=== PATIENT | female | born 1940 | race Caucasian/White ===

== ENCOUNTER 2021-09-25 09:03 | Inpatient (IN) | payer MEDICARE, OTHER ==
[2021-09-25] MEDS ORDERED: Enoxaparin 40 MG/0.4 ML Syringe SUBCUT SCH (15:15)
[2021-09-25] MEDS: carBAMazepine 200 MG Tab PO SCH ×2 (16:59→21:34)
[2021-09-25] MEDS: Acetaminophen 500 MG Tab PO SCH ×2 (17:00→21:34)
[2021-09-26] MEDS: Cholecalciferol (Vitamin D3) 25 MCG Tab PO SCH (08:42)
[2021-09-26] MEDS: Potassium Chloride 20 MEQ Tab.ER PO SCH (08:42)
[2021-09-26] MEDS: Metoprolol Succinate 25 MG Tab.ER PO SCH (08:43)
[2021-09-26] MEDS: Acetaminophen 500 MG Tab PO SCH ×3 (08:43→20:35)
[2021-09-26] MEDS: Flecainide 100 MG Tab PO SCH (08:43)
[2021-09-26] MEDS: carBAMazepine 200 MG Tab PO SCH ×3 (08:43→20:34)
[2021-09-26] MEDS: Enoxaparin 40 MG/0.4 ML Syringe SUBCUT SCH (08:44)
[2021-09-26] MEDS: Furosemide 20 MG Tab PO SCH (08:44)
[2021-09-26] MEDS: Multivitamin Tab PO SCH (08:44)
[2021-09-26] MEDS: Melatonin 3 MG Tab PO PRN (20:34)
[2021-09-27] MEDS: Acetaminophen 500 MG Tab PO SCH ×3 (08:35→20:19)
[2021-09-27] MEDS: Enoxaparin 40 MG/0.4 ML Syringe SUBCUT SCH (08:35)
[2021-09-27] MEDS: Flecainide 100 MG Tab PO SCH (08:36)
[2021-09-27] MEDS: carBAMazepine 200 MG Tab PO SCH ×3 (08:36→20:18)
[2021-09-27] MEDS: Cholecalciferol (Vitamin D3) 25 MCG Tab PO SCH (08:36)
[2021-09-27] MEDS: Furosemide 20 MG Tab PO SCH (08:36)
[2021-09-27] MEDS: Multivitamin Tab PO SCH (08:36)
[2021-09-27] MEDS: Potassium Chloride 20 MEQ Tab.ER PO SCH (08:37)
[2021-09-27] MEDS: Metoprolol Succinate 25 MG Tab.ER PO SCH (08:42)
[2021-09-27] MEDS: Melatonin 3 MG Tab PO PRN (20:20)
[2021-09-28] MEDS: Multivitamin Tab PO SCH (09:16)
[2021-09-28] MEDS: Acetaminophen 500 MG Tab PO SCH ×3 (09:16→20:42)
[2021-09-28] MEDS: Potassium Chloride 20 MEQ Tab.ER PO SCH (09:16)
[2021-09-28] MEDS: carBAMazepine 200 MG Tab PO SCH ×3 (09:16→20:42)
[2021-09-28] MEDS: Flecainide 100 MG Tab PO SCH (09:16)
[2021-09-28] MEDS: Enoxaparin 40 MG/0.4 ML Syringe SUBCUT SCH (09:16)
[2021-09-28] MEDS: Furosemide 20 MG Tab PO SCH (09:16)
[2021-09-28] MEDS: Metoprolol Succinate 25 MG Tab.ER PO SCH (09:17)
[2021-09-28] MEDS: Cholecalciferol (Vitamin D3) 25 MCG Tab PO SCH (09:17)
[2021-09-28] MEDS ORDERED: Warfarin Sliding Scale PO SCH (16:00)
[2021-09-28] MEDS: Warfarin 5 MG Tab PO SCH (16:58)
[2021-09-28] MEDS: Melatonin 3 MG Tab PO PRN (21:52)
[2021-09-29] MEDS: Metoprolol Succinate 25 MG Tab.ER PO SCH (08:24)
[2021-09-29] MEDS: Acetaminophen 500 MG Tab PO SCH ×3 (08:24→21:58)
[2021-09-29] MEDS: Furosemide 20 MG Tab PO SCH (08:24)
[2021-09-29] MEDS: Cholecalciferol (Vitamin D3) 25 MCG Tab PO SCH (08:24)
[2021-09-29] MEDS: carBAMazepine 200 MG Tab PO SCH ×3 (08:24→21:58)
[2021-09-29] MEDS: Multivitamin Tab PO SCH (08:24)
[2021-09-29] MEDS: Enoxaparin 40 MG/0.4 ML Syringe SUBCUT SCH (08:25)
[2021-09-29] MEDS: Potassium Chloride 20 MEQ Tab.ER PO SCH (08:25)
[2021-09-29] MEDS: Flecainide 100 MG Tab PO SCH (08:25)
[2021-09-29] MEDS ORDERED: Warfarin 5 MG Tab PO SCH (16:00)
[2021-09-29] MEDS: Warfarin 5 MG, Warfarin 2.5 MG PO SCH ×2 (16:36)
[2021-09-29] MEDS: Melatonin 3 MG Tab PO PRN (22:25)
[2021-09-30] MEDS: Potassium Chloride 20 MEQ Tab.ER PO SCH (08:35)
[2021-09-30] MEDS: Furosemide 20 MG Tab PO SCH (08:35)
[2021-09-30] MEDS: Enoxaparin 40 MG/0.4 ML Syringe SUBCUT SCH (08:36)
[2021-09-30] MEDS: Flecainide 100 MG Tab PO SCH (08:36)
[2021-09-30] MEDS: carBAMazepine 200 MG Tab PO SCH ×3 (08:36→20:41)
[2021-09-30] MEDS: Multivitamin Tab PO SCH (08:36)
[2021-09-30] MEDS: Acetaminophen 500 MG Tab PO SCH ×3 (08:37→20:41)
[2021-09-30] MEDS: Metoprolol Succinate 25 MG Tab.ER PO SCH (08:37)
[2021-09-30] MEDS: Cholecalciferol (Vitamin D3) 25 MCG Tab PO SCH (08:38)
[2021-09-30] MEDS: Warfarin 5 MG, Warfarin 2.5 MG PO SCH ×2 (15:33)
[2021-10-01] MEDS: Multivitamin Tab PO SCH (08:41)
[2021-10-01] MEDS: Potassium Chloride 20 MEQ Tab.ER PO SCH (08:41)
[2021-10-01] MEDS: Cholecalciferol (Vitamin D3) 25 MCG Tab PO SCH (08:42)
[2021-10-01] MEDS: carBAMazepine 200 MG Tab PO SCH ×3 (08:42→21:07)
[2021-10-01] MEDS: Furosemide 20 MG Tab PO SCH (08:43)
[2021-10-01] MEDS: Flecainide 100 MG Tab PO SCH (08:43)
[2021-10-01] MEDS: Metoprolol Succinate 25 MG Tab.ER PO SCH (08:44)
[2021-10-01] MEDS: Acetaminophen 500 MG Tab PO SCH ×3 (08:44→21:07)
[2021-10-01] MEDS: Warfarin 5 MG, Warfarin 2.5 MG PO SCH ×2 (16:37)
[2021-10-02] MEDS: Furosemide 20 MG Tab PO SCH (09:00)
[2021-10-02] MEDS: Flecainide 100 MG Tab PO SCH (09:00)
[2021-10-02] MEDS: Potassium Chloride 20 MEQ Tab.ER PO SCH (09:00)
[2021-10-02] MEDS: Cholecalciferol (Vitamin D3) 25 MCG Tab PO SCH (09:01)
[2021-10-02] MEDS: Acetaminophen 500 MG Tab PO SCH ×2 (09:01→14:49)
[2021-10-02] MEDS: carBAMazepine 200 MG Tab PO SCH ×2 (09:01→14:49)
[2021-10-02] MEDS: Multivitamin Tab PO SCH (09:01)
[2021-10-02] MEDS: Metoprolol Succinate 25 MG Tab.ER PO SCH (09:01)
[2021-10-02] MEDS: Warfarin 5 MG Tab PO SCH (15:53)
== END 2021-10-02 16:00 | disposition home or self-care (01) | DRG 948 ==
LOC: UNDOADMIN 14:38 → FB.MS 14:38
PROVIDERS: ADMIT Family Medicine; ATTEND Family Medicine
DX: R53.1 Weakness (principal); C18.1 Malignant neoplasm of appendix; D62 Acute posthemorrhagic anemia; I38 Endocarditis, valve unspecified; I50.32 Chronic diastolic (congestive) heart failure; L57.0 Actinic keratosis; Z66 Do not resuscitate; G40.909 Epilepsy, unspecified, not intractable, without status epilepticus; I11.0 Hypertensive heart disease with heart failure; K21.9 Gastro-esophageal reflux disease without esophagitis; M19.90 Unspecified osteoarthritis, unspecified site; I48.0 Paroxysmal atrial fibrillation; Z90.49 Acquired absence of other specified parts of digestive tract; Z79.01 Long term (current) use of anticoagulants; Z95.2 Presence of prosthetic heart valve; Z79.899 Other long term (current) drug therapy; Z95.0 Presence of cardiac pacemaker
CPT/HCPCS: 36415; 85610; 97116-GP; 97161-GP; 97166-GO; 97530-GO; 97535-GO; 99305; 99315; A9270-GY; J1650

== ENCOUNTER 2022-05-30 15:22 | Emergency (ER) | payer MEDICARE, OTHER ==
[2022-05-30] MEDS ORDERED: Ondansetron 4 MG/2 ML SDV IVPUSH ONE (16:00)
[2022-05-30 16:31] LABS: ESTIMATED GFR 20 mL/min (>60)
[2022-05-30] MEDS ORDERED: Sodium Chloride 0.9% 1,000 ML IV SCH (16:45)
[2022-05-30] MEDS ORDERED: Sodium Chloride 0.9% 10 ML Syringe FLUSH PRN (17:23)
[2022-05-30] MEDS ORDERED: cefTRIAXone 2 GM Vial IVPUSH ONE (17:50)
[2022-05-30] MEDS ORDERED: Ondansetron 4 MG/2 ML SDV ONE (21:26)
== END 2022-05-30 21:42 | disposition home or self-care (01) ==
LOC: FB.ED 15:22
DX: E86.0 Dehydration (principal); R19.7 Diarrhea, unspecified; I11.0 Hypertensive heart disease with heart failure; I50.30 Unspecified diastolic (congestive) heart failure; D63.8 Anemia in other chronic diseases classified elsewhere; I48.0 Paroxysmal atrial fibrillation; N39.0 Urinary tract infection, site not specified; R53.1 Weakness; M19.90 Unspecified osteoarthritis, unspecified site; Z95.2 Presence of prosthetic heart valve; Z85.038 Personal history of other malignant neoplasm of large intestine; Z88.1 Allergy status to other antibiotic agents; Z79.899 Other long term (current) drug therapy; Z79.01 Long term (current) use of anticoagulants
CPT/HCPCS: 36415; 71045; 80053; 81001; 83605; 83735; 83880; 85025; 86140; 87040; 87086; 96361; 96374; 96375; 99284; J0696; J2405; J3490; J7030